=== PATIENT | female | born 1940 | race African-American/Black ===

== ENCOUNTER → 2016-08-12 | Day surgery (SDC) | payer MEDICARE ==
[~2016-08-12] MED LIST: ANTIBIOTIC; ARTHROTEC 751 TAB.E2 PO; AUGMENTIN PO; BENTYL10 MG PO; COLCRYS0.6 MG PO; COMBIVENT INH14.7 GM INH; EVISTA60 M1; FLEXERIL PO; KCL; KCL PO; KETOPROFEN PO; LASIX; LASIX PO; MEDROL PO; NEURONTIN PO; OXYCODONE HCL5 M1 PO; OXYCONTIN PO; OXYCONTIN20 MG PO; PHENERGAN W/CO120 ML PO; PREMPRO 0.45/1.1 TAB PO; REGLAN PO; SINGULAIR PO; TUSSIN MAX15 MG/5 M1 PO; WATER PILL; ZEGERID 40 MG C1 CAP PO; ZEGERID40 MG/PKT; ZEGRID PO; [UNRECOGNIZED DRUG - REMARK]
--- NOTE | ~2016-08-12 | OR ---
Unit #: [id number] #: [id number] Patient: DALY ENCISO [id number] [address] [address] [id number] O MR#: [id number] NAME: DALY ENCISO ROOM: Date of Procedure: Admission Date: 08/12/2016 Surgeon: Simeon Ureña M.D. : 1940 Attending Physician: Simeon Ureña M.D. Primary Care Physician: Charles Hampton M.D. PROCEDURE OPERATIVE NOTE REVISED REPORT PREOPERATIVE DIAGNOSES 1. Neck pain. 2. Cervical radiculopathy. 3. Degenerative cervical disk disease. SECONDARY DIAGNOSES 1. Low back pain. 2. Radiculopathy. 3. Post laminectomy syndrome. 4. Degenerative disc disease. POSTOPERATIVE DIAGNOSIS Same. PROCEDURE PERFORMED 1. Lumbar epidural steroid injection with intravenous sedation under fluoroscopic guidance for needle localization. 2. Cervical epidural steroid injection under fluoroscopic guidance for needle localization. PROCEDURE The patient was placed in a seated position. Standard monitors were applied. 0.5 mg of versed were given for sedation and anxiolysis which were adequate. Vital signs remained stable. Sterile prep and drape then of the lumbar area was performed. The skin then at the L4-5 level was localized with 1% lidocaine. An 18-gauge [employer] needle was then advanced via loss of resistance technique under fluoroscopic guidance in toward the epidural space. The patient did not complain of any pain or paresthesia during the advancement. After confirming proper positioning with fluoroscopy and radiographic contrast, 80 mg of Depo-Medrol and 6 mL of 0.125% bupivacaine were deposited. The patient tolerated this part of the procedure well. PROCEDURE #2 - Cervical epidural steroid injection under fluoroscopic guidance A kit was used to sterilely prep and drape the patient's cervical spine. The skin at the C6-7 level was localized with 1% lidocaine. An 18-gauge [employer] needle was then advanced via hanging drop technique under fluoroscopic guidance in toward the epidural space. After confirming proper positioning with fluoroscopy and radiographic contrast, 80 mg of Depo-Medrol and 2 mL of 0.25% bupivacaine were deposited. The patient Unit #: [id number] #: [id number] Patient: DALY ENCISO tolerated the procedure otherwise well and was discharged to the recovery room in stable condition. Dictated by... Sreekanth Isaac/dinesh TD: 08/12/2016 11:57 JOB #: [id number] CC: Fiorella/anthony Please Delete PROCEDURE OPERATIVE NOTE Page 1 of 1 X Simeon Ureña MD X PROCEDURE OPERATIVE NOTE
== END | disposition home or self-care (01) ==
LOC: CCSC 10:06
DX: M96.1 Postlaminectomy syndrome, not elsewhere classified (principal); M51.16 Intervertebral disc disorders with radiculopathy, lumbar region; M50.10 Cervical disc disorder with radiculopathy, unspecified cervical region; E66.01 Morbid (severe) obesity due to excess calories
CPT/HCPCS: J1040; J2250

== ENCOUNTER → 2016-08-19 | Day surgery (SDC) | payer MEDICARE ==
--- NOTE | ~2016-08-19 | OR ---
Unit #: [id number] #: [id number] Patient: DALY ENCISO [id number] [address] [place], [place] [address] [id number] O MR#: [id number] NAME: DALY ENCISO ROOM: Date of Procedure: 08/19/2016 Admission Date: 08/19/2016 Surgeon: Simeon Ureña M.D. : 1940 Attending Physician: Simeon Ureña M.D. Primary Care Physician: Charles Hampton M.D. OPERATIVE REPORT PREOPERATIVE DIAGNOSES Low back pain, radiculopathy, degenerative disk disease and spinal stenosis and secondary diagnoses of neck pain, cervical radiculopathy, cervical spinal stenosis and degenerative cervical disk disease. POSTOPERATIVE DIAGNOSES Low back pain, radiculopathy, degenerative disk disease and spinal stenosis and secondary diagnoses of neck pain, cervical radiculopathy, cervical spinal stenosis and degenerative cervical disk disease. PROCEDURE PERFORMED 1. Lumbar epidural steroid injection with intravenous sedation under fluoroscopic guidance for needle localization. 2. Cervical epidural steroid injection with fluoroscopic guidance. HISTORY This 76-year-old female with return of neck and bilateral upper extremity pain, back and left greater than right lower extremity pain due to previously mentioned diagnosis. She also has post laminectomy syndrome affecting her low back. Initial epidural steroid injection resulted in 50% to 60% settling of her symptom complex. In the past, she had done much better for long amount of time with a series of injections. We are going to proceed with a second injection at this point. DESCRIPTION OF PROCEDURE The patient was placed in a seated position. Standard monitors were applied. Then, 0.5 mg of Versed was given for sedation and anxiolysis, which were adequate. Vital signs remained stable. Sterile prep and drape of the lumbar area was performed. The skin at the L4-L5 level was localized with 1% lidocaine. An 18-gauge [employer] needle was then advanced via loss of resistance technique and fluoroscopic guidance in toward the epidural space. After confirming proper positioning with fluoroscopy and radiographic contrast, 80 mg of Depo-Medrol and 6 mL of 0.125% bupivacaine were deposited. The patient tolerated procedure otherwise well. A separate kit was used then to sterilely prep and drape the patient's cervical spine. The skin at the C5-C6 level was localized with 1% lidocaine. An 18-gauge [employer] needle was then advanced via hanging drop technique and fluoroscopic guidance in toward the epidural space. After confirming proper positioning with fluoroscopy and radiographic contrast, 80 mg of Depo-Medrol and 2 mL of 0.25% bupivacaine were deposited. The patient tolerated the procedure otherwise well and was discharged to recovery room in stable condition. Unit #: [id number] #: [id number] Patient: DALY ENCISO Dictated by... Sreekanth Isaac/froylan TD: 08/19/2016 12:38 JOB #: [id number] OPERATIVE REPORT Page 1 of 1 X Simeon Ureña MD X PROCEDURE OPERATIVE NOTE
== END | disposition home or self-care (01) ==
LOC: CCSC 09:29
DX: M50.122 Cervical disc disorder at C5-C6 level with radiculopathy (principal); M51.16 Intervertebral disc disorders with radiculopathy, lumbar region; M48.02 Spinal stenosis, cervical region; M48.06 Spinal stenosis, lumbar region; M19.90 Unspecified osteoarthritis, unspecified site; J45.909 Unspecified asthma, uncomplicated; Z79.899 Other long term (current) drug therapy
CPT/HCPCS: J1040; J2250

== ENCOUNTER → 2016-08-26 | Day surgery (SDC) | payer MEDICARE ==
--- NOTE | ~2016-08-26 | OR ---
Unit #: [id number] #: [id number] Patient: DALY ENCISO [id number] [address] [place], [place] [address] [id number] O MR#: [id number] NAME: DALY ENCISO ROOM: Date of Procedure: 08/26/2016 Admission Date: 08/26/2016 Surgeon: Simeon Ureañ M.D. : 1940 Attending Physician: Simeon Ureña M.D. Primary Care Physician: Charles Hampton M.D. OPERATIVE REPORT JOB NOTE: CC: [facility]. PREOPERATIVE DIAGNOSES 1. Degenerative lumbar disk disease, spondylolisthesis, back pain, radiculopathy. 2. Degenerative cervical disk disease, cervical spondylolisthesis, neck pain, cervical radiculopathy. POSTOPERATIVE DIAGNOSES 1. Degenerative lumbar disk disease, spondylolisthesis, back pain, radiculopathy. 2. Degenerative cervical disk disease, cervical spondylolisthesis, neck pain, cervical radiculopathy. PROCEDURE PERFORMED 1. Lumbar epidural steroid injection with intravenous sedation and fluoroscopic guidance. 2. Cervical epidural steroid injection and fluoroscopic guidance. INDICATIONS FOR PROCEDURE The patient is a 76-year-old female with severe multilevel multifactorial degenerative changes with spondylolisthesis and spinal stenosis. She is treated with p.r.n. epidural steroids. In addition to medical management, she is not a surgical candidate. She has had 2 injections done over the last several weeks, she has gotten additive improvement. She is not yet down to her prior baseline, so the plan is to proceed with a final injection today. DESCRIPTION OF PROCEDURE The patient was placed in a seated position. Standard monitors were applied. 2 mg of Versed was given for sedation and anxiolysis, which were adequate. Vital signs remained stable. Sterile prep and drape then of the lumbar area was performed. The skin then at the L3 level was localized with 1% lidocaine. An 18-gauge [employer] needle was then advanced via loss of resistance technique and fluoroscopic guidance in toward the epidural space. After confirming proper positioning with fluoroscopy and radiographic contrast, 80 mg Depo-Medrol and 6 mL of 0.125% bupivacaine were deposited. Procedure #2: Cervical epidural steroid injection. A separate kit was used to sterilely prep and drape of the patient's cervical spine. The skin then at the C5 level was localized with 1% lidocaine. An 18-gauge Unit #: [id number] #: [id number] Patient: DALY ENCISO needle was then advanced via hanging drop technique and fluoroscopic guidance in toward the epidural space. After confirming proper positioning with fluoroscopy and radiographic contrast, 80 mg of Depo-Medrol and 2 mL of 0.25% bupivacaine were deposited. The patient tolerated the procedure otherwise well and was discharged to the recovery room in stable condition. Dictated by... Sreekatnh Isaac/froylan TD: 08/27/2016 00:50 JOB #: [id number] OPERATIVE REPORT Page 1 of 1 X Simeon Ureña MD X PROCEDURE OPERATIVE NOTE
== END | disposition home or self-care (01) ==
LOC: CCSC 09:07
DX: M50.11 Cervical disc disorder with radiculopathy, high cervical region (principal); M51.16 Intervertebral disc disorders with radiculopathy, lumbar region; M43.12 Spondylolisthesis, cervical region; M43.16 Spondylolisthesis, lumbar region; M48.02 Spinal stenosis, cervical region
CPT/HCPCS: J0461; J1040; J2250